=== PATIENT | female | born 1975 | race Caucasian/White ===

== ENCOUNTER 2019-07-27 12:04 | Emergency (ER) | payer OTHER, SELFPAY ==
[2019-07-27 12:15] VITALS: BP 140/73; PULSE 84; RESP 20; TEMP 37.1; O2SAT 100
--- NOTE | 2019-07-27 12:43 | ED.WOUNDLAC ---
HPI - Wound/Laceration General Chief Complaint: Wound/Laceration Stated Complaint: Bruise on arm Time Seen by Provider: 07/27/19 12:43 Source: patient and RN notes reviewed Mode of arrival: ambulatory Limitations: no limitations History of Present Illness HPI narrative: 44-year-old female presents with concern for drainage and a surgical site. Reports on she had a cyst removed from her left axilla. Reports yesterday she noticed tenderness, drainage from the area, she also reports a bruise that has been growing on her left upper arm. She reports pain with raising her arm. She reports she has been taking doxycycline and has 2 more days of the antibiotic left. She reports she has been using pain medicine as needed. Related Data Home Medications Medication Instructions Recorded Confirmed fexofenadine 180 mg tablet 180 mg PO DAILY 07/15/19 07/27/19 Allergies Allergy/AdvReac Type Severity Reaction Status Date / Time loperamide Allergy Unknown Rash Verified 07/24/19 13:09 oxycodone Allergy Unknown Rash Verified 07/24/19 13:09 sulfamethizole Allergy Unknown Rash Verified 07/24/19 13:09 trimethoprim Allergy Unknown Rash Verified 07/24/19 13:09 Review of Systems Review of Systems: Narrative: CONSTITUTIONAL: Denies malaise, chills, sweats, or fever. SKIN: Reports drainage from a surgical site in her left axilla, bruising to the left upper arm. 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 There is no relevant family history pertinent to the presenting complaint Exam Narrative: Exam Narrative: GENERAL: Well-appearing, well-nourished, and in no acute distress. HEAD: Normocephalic, atraumatic. EYES: PERRLA, conjunctivae clear NECK: Supple. CHEST: Speaks in full sentences. No respiratory distress. HEART: Regular rate and rhythm. Normal and equal peripheral pulses. EXTREMITIES: Left arm has normal strength and sensation, no edema, normal range of motion. Normal sensation with sensitivity to light touch and pain. Distal pulses palpable and equal bilaterally, skin warm, dry, pink. Capillary refill less than 3 seconds. SKIN: Warm, dry. Palpable mass in left axilla under surgical incision, surgical incision well approximated, however serosanguineous drainage noted weeping from surgical incision. Large area of ecchymosis approximately 20 cm x 9 cm noted extending from the surgical site onto the left arm. Surgical sites tender. NEURO: Alert and oriented x3. PSYCH: Normal mood and affect Course Course Emergency Course: Patient advised to continue rhexis likeliness prescribed by her surgeon, added clindamycin. Patient advised it is important to see her surgeon tomorrow for further evaluation and treatment of her surgical site. Patient is aware of diagnosis, understands and agrees to treatment plan. Anticipatory guidance given. Patient agrees to follow-up as directed and is aware of reasons to seek care at the emergency department. Portions of this record may have been created with voice recognition software Vital Signs Vital signs: Vital Signs Temperature 98.8 F 07/27/19 12:15 Pulse Rate 84 07/27/19 12:15 Respiratory Rate 20 07/27/19 12:15 Blood Pressure 140/73 07/27/19 12:15 Pulse Oximetry 100 07/27/19 12:15 Temperature 98.8 F 07/27/19 12:15 Pulse Rate 84 07/27/19 12:15 Respiratory Rate 20 07/27/19 12:15 Blood Pressure 140/73 07/27/19 12:15 Pulse Oximetry 100 07/27/19 12:1
== END 2019-07-27 13:00 | disposition home or self-care (01) ==
PROVIDERS: Emergency Provider Nurse Practitioner; PCP Family Medicine
DX: T81.49XA Infection following a procedure, other surgical site, initial encounter (principal); E11.9 Type 2 diabetes mellitus without complications
CPT/HCPCS: 99213; G0463

== ENCOUNTER 2019-09-10 11:50 | Emergency (ER) | payer OTHER, SELFPAY ==
--- NOTE | ~2019-09-10 | XR_ITS ---
EXAMINATION: XR chest 2V 09/10/2019 12:30 INDICATION: Dizziness. Intermittent nausea. PROCEDURE: 2 view chest COMPARISON: 02/21/2018 FINDINGS: The lungs are clear. The cardiomediastinal silhouette is within normal limits. There are no pleural effusions. There is no pneumothorax suspected. IMPRESSION: 1: NO ACUTE CARDIOPULMONARY DISEASE. Reviewed, dictated and finalized at location A.
--- NOTE | ~2019-09-10 | CT_ITS ---
EXAMINATION: CT BRAIN W/O DATE: 09/10/2019 13:11 INDICATION: Dizziness with nausea TECHNIQUE: Computed tomography (CT) of the head was performed without intravenous contrast. The dose- length product was 605.33 mGy-cm. The mA was adjusted according to patient size. Iterative reconstruc tion technique was employed. COMPARISON: No prior studies for comparison. FINDINGS: Normal brain parenchymal volume for age. Normal nunez-white differentiation. No acute intrac ranial hemorrhage, infarction, mass or mass effect. No ventriculomegaly or midline shift. Midline sagittal images demonstrate a normal corpus callosum, c raniovertebral junction and sella turcica. Basilar cisterns are patent. Paranasal sinuses and mastoids are pneumatized. No depressed skull fractures. IMPRESSION: 1. No acute intracranial abnormality. Reviewed, dictated and finalized at location A.
[2019-09-10 11:55] VITALS: BP 131/82; PULSE 74; RESP 16; TEMP 36.6; O2SAT 99
--- NOTE | 2019-09-10 12:17 | ECG_ITS ---
Measurements Intervals [place] Rate: 54 P: 28 MT: 165 QRS: 28 QRSD: 93 T: 14 QT: 419 QTc: 397 Interpretive Statements SINUS BRADYCARDIA BORDERLINE ECG Electronically Signed On 09-10-2019 14:10:13 CDT by Mitchell Steele D.O.
--- NOTE | 2019-09-10 12:19 | ED.DIZZY ---
HPI - Dizziness General Chief Complaint: Dizziness Stated Complaint: Dizzy Time Seen by Provider: 09/10/19 12:00 Source: patient Mode of arrival: wheelchair Limitations: no limitations History of Present Illness HPI Narrative: This is a 44 year old female that presents to the ER for dizziness since yesterday. Reports when she woke up in the morning and turned over to turn the alarm clock off she had a sudden wave of intense dizziness. Reports since she has had intermittent dizziness with certain head movements. Associated with nausea. Denies fever, chest pain or shortness of breath. Related Data Home Medications Medication Instructions Recorded Confirmed fexofenadine 180 mg tablet 180 mg PO DAILY 07/15/19 07/27/19 Allergies Allergy/AdvReac Type Severity Reaction Status Date / Time loperamide Allergy Unknown Rash Verified 09/04/19 10:37 oxycodone Allergy Unknown Rash Verified 09/04/19 10:37 sulfamethizole Allergy Unknown Rash Verified 09/04/19 10:37 trimethoprim Allergy Unknown Rash Verified 09/04/19 10:37 Review of Systems Review of Systems: Narrative: CONSTITUTIONAL: Denies fever EYES: Denies visual changes CARDIOVASCULAR: Denies chest pain or edema. RESPIRATORY: Denies dyspnea. GASTROINTESTINAL: Denies vomiting NEUROLOGIC: Denies headache, numbness, or weakness. 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 HEAD: Normocephalic, atraumatic. EYES: PERRLA and EOMI. ENT: Nares clear, no rhinorrhea or epistaxis. Mucous membranes moist. Oropharynx without tonsillar hypertrophy exudate or other lesions. Bilateral TMs pearly nunez non-bulging NECK: Supple. No adenopathy or masses. Normal ROM CHEST: Clear to auscultation. No respiratory distress. No wheezes, rales or rhonchi HEART: Regular rate and rhythm. No murmur heard. Normal peripheral pulses. EXTREMITIES: Normal range of motion. No edema. Strength equal in bilateral upper and lower extremities SKIN: Warm, dry, no rash. NEURO: No focal deficits. Alert and oriented x3. Cranial nerves II through XII grossly intact. Normal finger-nose. Normal [id number] PSYCH: Normal mood and affect Course Vital Signs Vital signs: Vital Signs Temperature 98 F 09/10/19 11:55 Pulse Rate 74 09/10/19 11:55 Respiratory Rate 16 09/10/19 11:55 Blood Pressure 131/82 09/10/19 11:55 Pulse Oximetry 99 09/10/19 11:55 Temperature 98 F 09/10/19 11:55 Pulse Rate 74 09/10/19 11:55 Respiratory Rate 16 09/10/19 11:55 Blood Pressure 131/82 09/10/19 11:55 Pulse Oximetry 99 09/10/19 11:55 MDM - Dizziness MDM Narrative Medical decision making narrative: Patient presents the emergency department for dizziness since yesterday. Dizziness is positional in nature and consistent with BPPV. Patient is otherwise neurologically intact. Vitals are normal. CBC, metabolic panel and UA without acute changes. Chest XR and EKG without concerning changes. CT brain without acute changes. Patient and family updated on case findings. She was instructed to follow-up with her primary care doctor for possible referral to vestibular therapy. Patient was given warnings to return to the ER Lab Data Attestation: I reviewed the patient's lab results. Result diagrams: 09/10/19 12:44 09/10/19 12:44 Labs: Lab Results 09/10/19 09/10/19 09/10/19 Range/Units 12:44 12:44 13:48 WBC 9.5 (4.5-10.0) K/mm3 RBC 5.32 (4.2-5.4) M/mm3 Hgb 14.3 (12.0-15.0) g/dL Hct 44.5 (37.0-47.0) % MCV 83.6 (80-100) fl MCH 26.9 (26-34)
[2019-09-10 12:59] LABS: Basophils Percent Auto 0.4 % (0.2-1.2); Eosinophils Absolute Auto 0.1 K/mm3 (0-0.3); Eosinophils Percent Auto 0.9 % (0-4.4); Hematocrit 44.5 % (37.0-47.0); Hemoglobin 14.3 g/dL (12.0-15.0); Immature Granulocyte Absolute 0.03 K/mm3 (0.00-0.031); Immature Granulocyte Percent A 0.3 % (0-0.5); Immature Platelet Fraction Pct 5.5 % (0.9-11.2); Lymphocytes Absolute Auto 1.88 K/mm3 (0.9-3.2); Lymphocytes Percent Auto 19.8 % (18.3-44.2); Mean Corpuscular HGB Conc 32.1 g/dl (32-36); Mean Corpuscular Hemoglobin 26.9 pg (26-34); Mean Corpuscular Volume 83.6 fl (80-100); Mean Platelet Volume 10.9 fl (7.4-10.4); Monocytes Absolute Auto 0.5 K/mm3 (0.1-0.6); Monocytes Percent Auto 5.2 % (2.6-8.5); Neutrophils Percent Auto 73.4 % (45.5-73.1); Platelet Count Result 267 k/mm3 (150-375); Red Blood Count 5.32 M/mm3 (4.2-5.4); Red Cell Distribution Width 14.7 % (11.5-14.5); White Blood Count 9.5 K/mm3 (4.5-10.0)
[2019-09-10 13:06] LABS: Alanine Aminotransferase 27 U/L (4-35); Albumin Level 4.7 g/dL (3.5-5.1); Alkaline Phosphatase 54 U/L (38-126); Aspartate Amino Transferase 31 U/L (14-36); Bilirubin,Total 0.6 mg/dL (0.2-1.3); Blood Urea Nitrogen 12 mg/dL (7-17); Calcium 9.2 mg/dL (8.4-10.2); Carbon Dioxide 23 mmol/L (22-30); Chloride 105 mmol/L (98-107); Estimated CRCL calculation 114 ml/min; Estimated Glomerular Filt Rate > 60; Glucose 106 mg/dL (65-105); Potassium 4.2 mmol/L (3.4-5.0); Sodium 136 mmol/L (137-145)
[2019-09-10] MEDS: ONDANSETRON INJ 4 MG/2 ML VIAL IV PUSH (13:34)
[2019-09-10] MEDS: SODIUM CHLORIDE 0.9% IV 1,000 ML 999 ML IV CONT (13:34)
[2019-09-10] MEDS: MECLIZINE HCL 25 MG TABLET PO (13:35)
[2019-09-10 14:07] LABS: Add Urine Microscopic? YES; Appearance Urine Clear (Clear); Bacteria Urine 2+ /hpf; Bilirubin Urine Negative (Negative); Blood Urine Negative (Negative); Color Urine Straw (Yellow); Glucose Urine UA Negative (Negative); Ketones Urine Trace mg/dL (Negative); Leukocyte Esterase Ur Negative LEU/UL (Negative); Mucus Urine Rare /lpf; Nitrate Urine Negative (Negative); Protein Urine Negative (Negative); RBC Urine 0-2 /hpf (0-2); Specific Grav Ur 1.009 (1.001-1.035); Squamous Epithelial Cell Urine Moderate /hpf (Few); Urobilinogen Urine Negative mg/dL (<2.0); WBC Urine 0-3 /hpf
[2019-09-10 14:55] VITALS: BP 126/77; PULSE 65; RESP 12; O2SAT 100
== END 2019-09-10 12:57 | disposition home or self-care (01) ==
PROVIDERS: Physician Assistant; Emergency Provider Emergency Medicine; PCP Family Medicine
DX: H81.10 Benign paroxysmal vertigo, unspecified ear (principal); R00.1 Bradycardia, unspecified
CPT/HCPCS: 36415; 70450; 71046; 80053; 81001; 81025; 85025; 85055; 93005; 96361; 96374; 96375; 99284; A9270; J0131; J2405; J7030

== ENCOUNTER → 2020-08-19 15:02 | Outpatient (CLI) | payer OTHER, SELFPAY ==
--- NOTE | ~2020-08-19 | MM_ITS ---
EXAMINATION: MM screening bhavya BI w sherry HISTORY: Screening mammogram TECHNIQUE: Craniocaudal and mediolateral oblique 3-D tomosynthesis images were obtained and synthetic 2-D images were generated. Bilateral rotated lateral CC views. CAD analysis was submitted and interp reted. COMPARISON: No prior mammogram is available for comparison at this institution. BREAST PARENCHYMAL COMPOSITION: The breasts are heterogeneously dense, which may obscure small masses . FINDINGS: There is no evidence of suspicious mass, calcification, or architectural distortion to sugg est malignancy in either breast. There has been no suspicious interval change. IMPRESSION: 1. No mammographic evidence of malignancy. 2. Recommend routine screening mammography in one year. BI-RADS Category 1: Negative Reviewed, dictated and finalized at location A.
== END ==
PROVIDERS: PCP Family Medicine; Visit Provider Nurse Practitioner Family
DX: Z12.31 Encounter for screening mammogram for malignant neoplasm of breast (principal)
CPT/HCPCS: 77063; 77067

== ENCOUNTER → 2020-09-07 08:48 | Outpatient (CLI) | payer OTHER, SELFPAY ==
--- NOTE | ~2020-09-07 | XR_ITS ---
EXAMINATION: XR lumbar spine 2-3V EXAM DATE: 09/07/2020 09:07 INDICATION: Left-sided low back pain and left leg burning sensation intermittent. TECHNIQUE: Lumber spine frontal, lateral, lateral L5-S1 projections for interpretation. There is no prior study for comparison. FINDINGS: Probable moderate disc disease L5-S1, minimal at the other lumbar levels. There is mild to moderate lower lumbar facet arthropathy. There are no acute fractures identified. Sacrum, sacroilia c joints, sacral arcuate lines are intact. Paraspinal soft tissue is unremarkable. There are no bony erosions identified. IMPRESSION: 1. L5-S1 moderate disc disease. 2. Mild to moderate facet arthropathy. Reviewed, dictated and finalized at location A.
== END ==
PROVIDERS: PCP Family Medicine; Visit Provider Physician Assistant
DX: M54.40 Lumbago with sciatica, unspecified side (principal); M51.87 Other intervertebral disc disorders, lumbosacral region; M47.816 Spondylosis without myelopathy or radiculopathy, lumbar region
CPT/HCPCS: 72100

== ENCOUNTER → 2020-11-02 10:55 | Outpatient (CLI) | payer OTHER, SELFPAY ==
--- NOTE | ~2020-11-02 | MR_ITS ---
EXAMINATION: MR lumbar spine wo/w con DATE: 11/02/2020 11:56 INDICATION: Lumbago. Sciatica. TECHNIQUE: Magnetic resonance imaging (MRI) of the lumbar spine was performed without and with 18 mL MultiHance intravenous contrast. Sequences included sagittal T2-weighted FSE, sagittal T2-weighted FS FSE, and sagittal and axial T1-weighted FSE. Postcontrast sequences included axial T2-weighted FSE a nd axial and sagittal T1-weighted FS FSE. COMPARISON: Lumbar spine radiographs 09/07/2020 FINDINGS: There is 3 mm retrolisthesis of L5 on S1. There are Schmorl's nodes from T10-T11 through L2 -L3. There is moderately decreased disc height at L5-S1. The distal spinal cord signal intensity is n ormal. The conus medullaris is at L1. The following disc levels are specifically discussed: L1-L2: The disc does not extend beyond the endplate margin. There is no facet joint osteoarthritis. T here is no neural foraminal stenosis. There is no central canal stenosis. L2-L3: The disc does not extend beyond the endplate margin. There is no facet joint osteoarthritis. T here is no neural foraminal stenosis. There is no central canal stenosis. L3-L4: The disc does not extend beyond the endplate margin. There is no facet joint osteoarthritis. T here is no neural foraminal stenosis. There is no central canal stenosis. L4-L5: The disc does not extend beyond the endplate margin. There is mild left facet joint osteoarthr itis. There is no neural foraminal stenosis. There is no central canal stenosis. L5-S1: The disc is bulging with superimposed left central and subarticular zone extrusion with surrou nding enhancing granulation tissue. There is mass effect on the left S1 and S2 nerve roots. There is mild bilateral facet joint osteoarthritis. There is mild right and moderate left neural foraminal khalif nosis. There is mild central canal stenosis. There are changes of left hemilaminotomy. IMPRESSION: 1. Extrusion at L5-S1 with mass effect on the left S1 and S2 nerve roots and moderate left neural for aminal stenosis. Reviewed, dictated and finalized at location A. IMPRESSION: 1. Extrusion at L5-S1 with mass effect on the left S1 and S2 nerve roots and mo derate left neural foraminal stenosis.
[2020-11-02 11:27] LABS: Estimated Glomerular Filt Rate > 60
== END ==
PROVIDERS: Visit Provider Physician Assistant
DX: M54.40 Lumbago with sciatica, unspecified side (principal); M48.07 Spinal stenosis, lumbosacral region
CPT/HCPCS: 72158; A9577

== ENCOUNTER 2022-03-31 12:42 | Outpatient (CLI) | payer OTHER, SELFPAY ==
[2022-03-31 13:58] LABS: IFOB Positive Control Positive; Immunochemical Fecal Occult Bl Negative (N)
== END 2022-03-31 12:43 | disposition home or self-care (01) ==
LOC: ANHLAB 12:44
PROVIDERS: PCP Family Medicine; Visit Provider Physician Assistant
DX: D50.9 Iron deficiency anemia, unspecified (principal)
CPT/HCPCS: 82274

== ENCOUNTER 2022-08-25 00:34 | Day surgery (SDC) | payer OTHER, SELFPAY ==
[2022-08-14 15:09] VITALS: BMI 37.1
[2022-08-25 10:15] VITALS: BP 132/67; PULSE 79; RESP 18; TEMP 36.1; O2SAT 98
[2022-08-25] MEDS: LACTATED RINGERS 1,000 ML 150 ML IV CONT (10:24)
--- NOTE | 2022-08-25 10:34 | WPDANESEPPF ---
Anes - Initial Pre Proc Eval Procedure: Operation Date: 08/25/22 14:00 Proposed Procedures p Screening Colonoscopy - Buck Cedeno MD Date/Time: 08/25/22 10:34 Surgeon: Buck Cedeno MD Pre Op Diagnosis: neoplasm screening Patient Data Age: 47 Gender: F Height: 1.68 m Weight: 104 kg Last Vital Signs Temp 97 F L 08/25/22 10:15 Pulse 79 08/25/22 10:15 Resp 18 08/25/22 10:15 BP 132/67 08/25/22 10:15 Pulse Ox 98 08/25/22 10:15 O2 Del Method Room Air 08/25/22 10:15 Allergies Allergy/AdvReac Type Severity Reaction Status Date / Time loperamide Allergy Unknown Rash Verified 08/25/22 10:11 oxycodone Allergy Unknown Rash Verified 08/25/22 10:11 sulfamethizole Allergy Unknown Rash Verified 08/25/22 10:11 trimethoprim Allergy Unknown Rash Verified 08/25/22 10:11 ointment AdvReac Mild rash Uncoded 08/25/22 10:11 Home Medications Medication Instructions Recorded Confirmed Type No Home Medications 07/27/22 08/25/22 History Patient hx anesthesia problems: none Family hx anesthesia problems: none Results Review: All pre-operative results and documents have been reviewed as part of the pre-operative evaluation. [facility] Past Medical History Medical History (Updated 07/27/22 @ 16:34 by Mely Cerda PA-C) History of cancer of uterus Surgical History Surgical History History of back surgery 2013 History of removal of cyst under right arm not sure on the year Family History Family History Mother Mitral valve prolapse Other Cerebrovascular accident Social History Social History Smoking status: Never smoker Second hand tobacco smoke exposure: No Alcohol intake: current Alcohol use details: occasional Substance use: never Substance use type: does not use Living arrangements: with family Occupation/Education: occupation 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 Gender identity (if verbalized by the patient): Female Sexual Orientation (if Verbalized by the Patient): Straight or Heterosexual Spiritual care concerns: No Anes - Eval Final PreProcedure Day of Procedure 08/25/22 10:34 Patient weight: obese Heart: regular rate and rhythm Lungs: clear to auscultation Airway: Mallampati scale class II Neurological: alert and oriented Last oral intake: >/= 8 hours ASA classification: III Emergent: no Anesthetic plan: proceed Anesthesia type and monitoring: general GIVS and standard monitoring Results Review: All pre-operative results and documents have been reviewed as part of the pre-operative evaluation. Informed Consent: The patient's anesthetic plan and its attendant risks and benefits were discussed with the patient/family/POA. Questions were solicited and answers provided to the satisfaction of the patient/family/POA.
--- NOTE | 2022-08-25 11:09 | PM.HPGS ---
History of Present Illness History of Present Illness Consent: Risks, benefits, and alternatives have been discussed and questions answered. Patient agrees to proceed with procedure. Chief complaint: neoplasm screening Narrative: Margaret Bloom is a 47 year old female who has had issues with loose stools.? This began when she went on metformin.? She discontinue that last February, however stools remain loose.? Her bowel movements are not as watery as they had been but she has not had formed stools since? starting metformin.? At times her stools are sticky and difficult to get herself completely? clean wiping with tissue.? She has not had blood in her stools.? Her weight is stable there has been no anorexia nausea vomiting or dysphagia.? ? She did have a reaction to Imodium when she had tried it once.? Review of Systems Review of Systems: All systems reviewed & are unremarkable except as noted in HPI and below PMFSH Past Medical History Medical History History of cancer of uterus Surgical History Surgical History History of back surgery 2013 History of removal of cyst under right arm not sure on the year Family History Family History Mother Mitral valve prolapse Other Cerebrovascular accident Social History Social History Smoking status: Never smoker Second hand tobacco smoke exposure: No Alcohol intake: current Alcohol use details: occasional Substance use: never Substance use type: does not use Living arrangements: with family Occupation/Education: occupation 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 Gender identity (if verbalized by the patient): Female Sexual Orientation (if Verbalized by the Patient): Straight or Heterosexual Spiritual care concerns: No Meds Home Medications and Allergies Home Medications Medication Instructions Recorded Confirmed Type No Home Medications 07/27/22 08/25/22 History Allergies Allergy/AdvReac Type Severity Reaction Status Date / Time loperamide Allergy Unknown Rash Verified 08/25/22 10:11 oxycodone Allergy Unknown Rash Verified 08/25/22 10:11 sulfamethizole Allergy Unknown Rash Verified 08/25/22 10:11 trimethoprim Allergy Unknown Rash Verified 08/25/22 10:11 ointment AdvReac Mild rash Uncoded 08/25/22 10:11 Vital Signs Vital Signs - 24 hr 08/25/22 10:15 Temperature 36.1 C L Pulse Rate 79 Respiratory Rate 18 Blood Pressure 132/67 Pulse Oximetry 98 Oxygen Delivery Room Air Exam Resp: Auscultation: clear to auscultation bilaterally Cardio: Rate: regular rate Rhythm: regular rhythm GI: GI Palp: Yes Soft to palpation and No Tenderness to palpation present (GI) Assessment and Plan Assessment and plan (1) Chronic diarrhea: Code(s): K52.9 - Noninfective gastroenteritis and colitis, unspecified Status: Acute Assessment and Plan: Colonoscopy with possible biopsy or polypectomy or cautery or injection of substances.
[2022-08-25] MEDS: SIMETHICONE ORAL SUSPENSION 20 MG/0.3 ML 30 ML BOTTLE 0.6 ML IRRIGATION (11:26)
[2022-08-25 11:34] VITALS: BP 106/69; PULSE 85; RESP 20; O2SAT 98
[2022-08-25 11:44] VITALS: BP 108/61; PULSE 80; RESP 19; O2SAT 98
[2022-08-25 11:54] VITALS: BP 128/61; PULSE 78; RESP 19; O2SAT 98
== END 2022-08-25 12:11 | disposition home or self-care (01) ==
PROVIDERS: PCP Family Medicine; Visit Provider Internal Medicine Gastroenterology
PROC: 0DJD8ZZ Inspection of Lower Intestinal Tract, Via Natural or Artificial Opening Endoscopic (ICD-10-PCS; CPT 45378; principal; 2022-08-25 14:00)
DX: R19.7 Diarrhea, unspecified (principal); Z85.42 Personal history of malignant neoplasm of other parts of uterus; E66.9 Obesity, unspecified; Z68.37 Body mass index [BMI] 37.0-37.9, adult
CPT/HCPCS: 45380; 88305; J2704; J7120

== ENCOUNTER 2023-04-11 10:58 | Emergency (ER) | payer OTHER, SELFPAY ==
--- NOTE | ~2023-04-11 | US_ITS ---
EXAMINATION:US venous doppler LE RT INDICATION:Recent knee surgery. TECHNIQUE: Multiple grayscale, color flow and Doppler images of the right lower extremity deep venous systems were obtained and reviewed. COMPARISON:No prior studies for comparison. FINDINGS: The common femoral, superficial femoral and popliteal veins demonstrate normal respiratory variation, augmentation and compressibility. Color flow is also seen within the posterior tibial, pe roneal, greater saphenous and profunda veins. IMPRESSION: 1: No lower extremity deep venous thrombosis. Reviewed, dictated and finalized at location B. [facility]
[2023-04-11 11:02] VITALS: BP 139/63; PULSE 81; RESP 18; TEMP 36.3; O2SAT 97
--- NOTE | 2023-04-11 13:35 | ED.GENADULT ---
HPI - General Adult General Chief complaint: Recheck/Abnormal Lab/Rx Stated complaint: right leg pain Time Seen by Provider: 04/11/23 11:10 History of Present Illness HPI narrative: 48-year-old female who presented emergency department for evaluation of right leg swelling. Patient had a recent knee replacement. Patient had follow-up with her physicians and they recommended that she have an ultrasound to rule out DVT due to persistent leg swelling. Patient denies any chest pain or shortness of breath. Related Data Allergies Allergy/AdvReac Type Severity Reaction Status Date / Time loperamide Allergy Unknown Rash Verified 04/11/23 11:23 oxycodone Allergy Unknown Rash Verified 04/11/23 11:23 sulfamethizole Allergy Unknown Rash Verified 04/11/23 11:23 trimethoprim Allergy Unknown Rash Verified 04/11/23 11:23 ointment AdvReac Mild rash Uncoded 08/25/22 10:11 Review of Systems Review of Systems: All systems reviewed & are unremarkable except as noted in HPI and below PMFSH Past Medical History Medical History (Updated 04/11/23 @ 13:41 by Gonzalez Hurley MD) History of cancer of uterus Surgical History Surgical History History of back surgery 2013 History of removal of cyst under right arm not sure on the year Family History Family History Mother Mitral valve prolapse Other Cerebrovascular accident Social History Social History Smoking status: Never smoker Second hand tobacco smoke exposure: No Alcohol intake: current Alcohol use details: occasional Substance use: never Substance use type: does not use Living arrangements: with family Occupation/Education: occupation 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 HEAD: normocephalic, atraumatic. EYES: PERRLA/EOMI, conjunctivae clear. NOSE: Normal no drainage EARS:TMS clear with good light reflex. THROAT: Pharynx clear, no exudate. NECK: Supple. No adenopathy, no masses. RESPIRATORY: Airway patent, respirations nonlabored. Clear to auscultation bilaterally, no rales, rhonchi, wheezing. CARDIOVASCULAR: Regular rate and rhythm without murmurs rubs or gallops. ABDOMINAL: Soft, nontender, nondistended, normal bowel sounds MUSCULOSKELETAL: Moves all extremities. No significant edema on the right lower extremity NEURO: Alert. Cranial nerves II through XII intact. Good gait. Good coordination SKIN: Well-appearing surgical incisions on the right knee. Course Course Emergency Course: 48-year-old female presenting to the ED for evaluation of a possible DVT in her right lower extremity. Ultrasound was negative. Patient and family were updated on the results of workup patient was comfortable with the plan for discharge and close follow-up Vital Signs Vital signs: Vital Signs Temperature 97.3 F L 04/11/23 11:02 Pulse Rate 81 04/11/23 11:02 Respiratory Rate 18 04/11/23 11:02 Blood Pressure 139/63 04/11/23 11:02 Pulse Oximetry 97 04/11/23 11:02 Oxygen Delivery Room Air 04/11/23 11:02 Temperature 97.3 F L 04/11/23 11:02 Pulse Rate 81 04/11/23 11:02 Respiratory Rate 18 04/11/23 11:02 Blood Pressure 139/63 04/11/23 11:02 Pulse Oximetry 97 04/11/23 11:02 Oxygen Delivery Room Air 04/11/23 11:02 Medical Decision Making Differential Diagnosis Differential Diagnosis: Cellulitis, DVT, lymphedema, sciatica Vital Signs Vital Signs: Vital Signs Temperature 97.3 F L 04/11/23 11:02 Pulse Rate 81 04/11/23 11:02 Respiratory Rate 18 04/11/23 11:02 Blo
== END 2023-04-11 13:54 | disposition home or self-care (01) ==
PROVIDERS: Emergency Provider Emergency Medicine; PCP Family Medicine
DX: M79.604 Pain in right leg (principal); Z85.42 Personal history of malignant neoplasm of other parts of uterus
CPT/HCPCS: 93971; 99284

== ENCOUNTER 2023-08-16 15:00 | Outpatient (CLI) | payer OTHER, SELFPAY ==
[2023-08-21 02:44] LABS: Immunoglobulin A 123 mg/dL (47-310); TTG IGA AB <1.0 U/mL (<15.0)
== END 2023-08-16 15:01 | disposition home or self-care (01) ==
LOC: ANHLAB 15:03
PROVIDERS: PCP Family Medicine; Visit Provider Nurse Practitioner Family
DX: K52.9 Noninfective gastroenteritis and colitis, unspecified (principal)
CPT/HCPCS: 36415; 82784; 84443; 86364

== ENCOUNTER 2024-02-28 08:56 | Emergency (ER) | payer OTHER, SELFPAY ==
[2024-02-28 09:10] VITALS: BP 139/87; PULSE 93; RESP 16; TEMP 36.7; O2SAT 100
--- NOTE | 2024-02-28 09:20 | ED.URI ---
HPI - URI/Sore Throat General Chief Complaint: Upper Respiratory Infection Stated Complaint: Sinus Infection Symptoms Source: patient and RN notes reviewed Mode of arrival: ambulatory Limitations: no limitations History of Present Illness HPI Narrative: 49 year old female presented for complaint of nasal congestion, scratchy throat head pressure, mild cough and body aches. Onset 5 days. Denies shortness of breath, wheezing, nausea vomiting diarrhea, fevers or chills. Took a dose of DayQuil yesterday without relief. Also has been using dissolvable children's aspirin for throat pain. MD elicited complaint: cough Related Data Allergies Allergy/AdvReac Type Severity Reaction Status Date / Time loperamide Allergy Unknown Rash Verified 02/28/24 09:06 oxycodone Allergy Unknown Rash Verified 02/28/24 09:06 sulfamethizole Allergy Unknown Rash Verified 02/28/24 09:06 trimethoprim Allergy Unknown Rash Verified 02/28/24 09:06 ointment AdvReac Mild rash Uncoded 02/28/24 09:06 Review of Systems Review of Systems: CONSTITUTIONAL: Endorses malaise, body aches denies chills, sweats, fever EYES: Denies visual changes, redness, or discharge ENT: Reports rhinorrhea, congestion, sinus pain, otalgia, sore throat CARDIOVASCULAR: Denies chest pain, palpitations, edema RESPIRATORY: Reports cough, post nasal drainage. Denies dyspnea GASTROINTESTINAL: Denies abdominal pain, nausea, vomiting, diarrhea SKIN: Denies rash or itching NEUROLOGIC: Reports headache PMFSH Past Medical History Medical History (Updated 02/28/24 @ 09:48 by Kanwal Fry APRN) History of cancer of uterus Surgical History Surgical History History of back surgery 2013 History of removal of cyst under right arm not sure on the year Family History Family History Mother Mitral valve prolapse Other Cerebrovascular accident Social History Social History Smoking status: Never smoker Second hand tobacco smoke exposure: No Alcohol intake: current Alcohol use details: occasional Substance use: never Substance use type: does not use Living arrangements: with family Occupation/Education: occupation 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 Nasal congestion. TMs pearly nunez with normal light reflex bilaterally; no tragal tenderness. Oropharynx not erythematous without lesions or exudate, no drooling, no hoarseness, no trismus, uvula midline. No tripod positioning, muffled voice, soft palate or pharyngeal wall bulging NECK: Supple. No lymphadenopathy CHEST: Clear to auscultation, breath sounds equal. No wheezing, rhonchi, rales, or stridor. No respiratory distress, speaks in full sentences. HEART: Regular rate and rhythm. SKIN: Warm, dry NEURO: Alert and oriented x3. PSYCH: Normal mood and affect Course Course Emergency Course: Patient is aware of diagnosis, understands and agrees to treatment plan. Anticipatory guidance given. Patient agrees to follow-up as directed and is aware of reasons to seek care at the emergency department. Portions of this record may have been created with voice recognition software Level of Care: Express Care Visit Vital Signs Vital signs: Vital Signs Temperature 98.1 F 02/28/24 09:10 Pulse Rate 93 02/28/24 09:10 Respiratory Rate 16 02/28/24 09:10 Blood Pressure 139/87 02/28/24 09:10 Pulse Oximetry 100 02/28/24 09:10 Temperature 98.1 F 02/28/24 09:10 Pulse Rate 93 02/28/24 09:10 Respiratory Rate 16 10
[2024-02-28 09:38] LABS: EDSTREPNEGPOS1 Negative (Negative)
[2024-02-28 09:45] LABS: EDCOVIDSCREEN Negative (Negative); EDINFLUASCREEN Negative (Negative); EDINFLUBSCREEN Negative (Negative)
== END 2024-02-28 09:58 | disposition home or self-care (01) ==
PROVIDERS: Emergency Provider Nurse Practitioner Family; PCP Family Medicine
DX: J06.9 Acute upper respiratory infection, unspecified (principal); Z20.822 Contact with and (suspected) exposure to COVID-19; Z85.42 Personal history of malignant neoplasm of other parts of uterus
CPT/HCPCS: 87081; 87426; 87804; 87880; 99213; G0463

== ENCOUNTER 2025-05-01 14:21 | Outpatient (CLI) | payer OTHER, SELFPAY ==
--- NOTE | ~2025-05-01 | XR_ITS ---
EXAMINATION: XR knee LT min 4V, 05/01/2025 14:27 TRAIN EXAMINER HISTORY: M25.561 - Pain in right knee COMPARISON: No comparisons available. Findings: No acute fracture or malalignment. No significant degenerative changes. Soft tissues unremarkable. Impression: No acute fracture or malalignment. Reviewed, dictated and finalized at location P. N EXAMINER Impression: No acute fracture or malalignment.
--- NOTE | ~2025-05-01 | XR_ITS ---
EXAMINATION: XR foot LT min 3V, 05/01/2025 14:27 ARCHITECTURAL DRAFTSPERSON HISTORY: M25.561 - Pain in right knee COMPARISON: No comparisons available. Findings: No acute fracture or malalignment. No significant degenerative changes. Soft tissues unremarkable. Impression: No acute fracture or malalignment. Reviewed, dictated and finalized at location P. ITECTURAL DRAFTSPERSON Impression: No acute fracture or malalignment.
--- NOTE | ~2025-05-01 | XR_ITS ---
EXAMINATION: XR knee RT min 4V, 05/01/2025 14:27 EXECUTIVE DIRECTOR OF MARKETING HISTORY: M25.561 - Pain in right knee COMPARISON: No comparisons available. Findings: No acute fracture or malalignment. Moderate tricompartmental degenerative changes Soft tissues unremarkable. Impression: No acute fracture or malalignment. Reviewed, dictated and finalized at location P. UTIVE DIRECTOR OF MARKETING Impression: No acute fracture or malalignment.
== END 2025-05-01 14:22 | disposition home or self-care (01) ==
LOC: MICIMG 14:24
PROVIDERS: PCP Family Medicine; Visit Provider Physician Assistant
DX: M25.561 Pain in right knee (principal); M25.562 Pain in left knee; M79.672 Pain in left foot
CPT/HCPCS: 73564; 73630